=== PATIENT | male | born 1960 | race Asian ===

== ENCOUNTER 2017-08-02 06:56 | Outpatient (CLI) | payer OTHER ==
[2017-08-02 07:52] LABS: % BASOPHILS 0.6 % (0.0-2.0); % EOSINOPHILS 2.2 % (0.0-5.0); % LYMPHOCYTES 35.2 % (20.0-50.0); % MONOCYTES 8.4 % (2.0-10.0); % NEUTROPHILS 53.6 % (40.0-80.0); EOSINOPHILE ABSOLUTE 0.2 Th/cmm (0.1-0.4); HEMATOCRIT 41.4 % (41.0-60); HEMOGLOBIN 13.6 gm/dL (12-16); LYMPHOCYTE ABSOLUTE 2.7 Th/cmm (1.5-3.0); MEAN CELL VOLUME 83.3 fl (80-99); MEAN CORPUSCULAR HEMOGLOBIN 27.3 pg (26.0-30.0); MEAN CORPUSCULAR HGB CONC 32.7 pg (28.0-36.0); MEAN PLATELET VOLUME 8.4 fl; MONOCYTE ABSOLUTE 0.6 Th/cmm (0.3-1.0); NEUTROPHILE ABSOLUTE 4.1 Th/cmm (1.8-8.0); PLATELET COUNT 277 Th/cmm (150-400); RED BLOOD COUNT 4.97 Mil/cmm (4.30-5.70); RED CELL DISTRIBUTION WIDTH 12.3 % (11.5-20.0); WHITE BLOOD COUNT 7.6 Th/cmm (4.8-10.8)
[2017-08-02 08:21] LABS: ALB/GLOB RATIO 1.3 (1.0-1.8); ALBUMIN 4.3 gm/dL (4.2-5.5); ALKALINE PHOSPHATASE 49 U/L (34-104); ANION GAP 10.4 (7.0-16.0); BILIRUBIN,TOTAL 0.7 mg/dL (0.3-1.0); BUN - UREA NITROGEN 16 mg/dL (7-25); CALCIUM SERUM 9.7 mg/dL (8.6-10.3); CARBON DIOXIDE 24.4 mEq/L (21.0-31.0); CHLORIDE 106 mEq/L (98-107); CREATININE - SERUM 1.1 mg/dL (0.7-1.3); GFR AFRICAN-AMERICAN > 60.0 ml/min (>90); GFR NON AFRICAN-AMERICAN > 60.0 ml/min; GLUCOSE 176 mg/dL (70-105); POTASSIUM SERUM 3.8 mEq/L (3.5-5.1); SGOT 16 U/L (13-39); SGPT/ALT 25 U/L (7-52); SODIUM SERUM 137 mEq/L (136-145); TOTAL PROTEIN,SERUM 7.6 gm/dL (6.0-8.3)
[2017-08-02 18:44] LABS: A1C % 7.6 % (4.0-6.0)
== END 2017-08-02 07:20 | disposition home or self-care (01) ==
LOC: LAB 06:56
PROVIDERS: ATTEND Internal Medicine
DX: Z00.00 Encounter for general adult medical examination without abnormal findings (principal)
CPT/HCPCS: 36415-UA; 80053-TC; 82043-90; 82270-TC; 82306-90; 83036-90; 84153-90; 84443-TC; 85025-TC

== ENCOUNTER 2018-09-25 07:46 | Outpatient (CLI) | payer OTHER ==
[2018-09-25 08:42] LABS: % BASOPHILS 0.9 % (0.0-2.0); % LYMPHOCYTES 35.9 % (20.0-50.0); % MONOCYTES 6.8 % (2.0-10.0); % NEUTROPHILS 54.4 % (40.0-80.0); BASOPHILE ABSOLUTE 0.1 Th/cumm (0-0.2); EOSINOPHILE ABSOLUTE 0.2 Th/cmm (0.1-0.4); HEMATOCRIT 41.9 % (41.0-60); HEMOGLOBIN 13.5 gm/dL (12-16); MEAN CELL VOLUME 84.6 fl (80-99); MEAN CORPUSCULAR HEMOGLOBIN 27.2 pg (26.0-30.0); MEAN CORPUSCULAR HGB CONC 32.2 pg (28.0-36.0); MONOCYTE ABSOLUTE 0.6 Th/cmm (0.3-1.0); NEUTROPHILE ABSOLUTE 4.5 Th/cmm (1.8-8.0); PLATELET COUNT 298 Th/cmm (150-400); RED BLOOD COUNT 4.95 Mil/cmm (4.30-5.70); RED CELL DISTRIBUTION WIDTH 11.8 % (11.5-20.0); WHITE BLOOD COUNT 8.4 Th/cmm (4.8-10.8)
[2018-09-25 09:20] LABS: ALB/GLOB RATIO 1.4 (1.0-1.8); ALBUMIN 4.5 gm/dL (4.2-5.5); ALKALINE PHOSPHATASE 52 U/L (34-104); BILIRUBIN,TOTAL 0.6 mg/dL (0.3-1.0); BUN - UREA NITROGEN 15 mg/dL (7-25); CALCIUM SERUM 9.8 mg/dL (8.6-10.3); CARBON DIOXIDE 28.2 mEq/L (21.0-31.0); CHLORIDE 105 mEq/L (98-107); CHOLESTEROL 141 mg/dL (<200); CREATININE - SERUM 1.1 mg/dL (0.7-1.3); GFR AFRICAN-AMERICAN > 60.0 ml/min (>90); GFR NON AFRICAN-AMERICAN > 60.0 ml/min; GLUCOSE 169 mg/dL (70-105); HDL -HIGH DENSITY LIPOPROTEIN 41 mg/dL (23-92); POTASSIUM SERUM 4.2 mEq/L (3.5-5.1); SGOT 20 U/L (13-39); SGPT/ALT 29 U/L (7-52); SODIUM SERUM 140 mEq/L (136-145); TOTAL PROTEIN,SERUM 7.7 gm/dL (6.0-8.3); TRIGLYCERIDES 155 mg/dL (<150)
[2018-09-26 06:06] LABS: A1C 7.5 % (4.8-5.6)
== END 2018-09-25 08:05 | disposition home or self-care (01) ==
LOC: LAB 07:46
PROVIDERS: ATTEND Internal Medicine
DX: Z00.00 Encounter for general adult medical examination without abnormal findings (principal); I10 Essential (primary) hypertension; E11.40 Type 2 diabetes mellitus with diabetic neuropathy, unspecified; R39.11 Hesitancy of micturition; E55.9 Vitamin D deficiency, unspecified; E78.5 Hyperlipidemia, unspecified
CPT/HCPCS: 36415-UA; 80053-TC; 80061-TC; 82043-90; 82306-90; 83036-90; 84153-90; 84443-TC; 85025-TC